=== PATIENT | male | born 1990 | race African-American/Black ===

== ENCOUNTER 2016-06-27 12:24 | Emergency (ER) ==
[2016-06-27 12:35] VITALS: BP 131/69
--- NOTE | 2016-06-27 13:21 | Diag Imaging Result Document ---
PROCEDURE NAME: CHEST-2 VIEWS - 06/27/2016 FRONTAL AND LATERAL CHEST, 2 VIEWS: FINDINGS: Compared to 06/10/2016. The lungs are well expanded. No pneumothoraces. The heart is not enlarged. The vessels are not distended. No pleural effusions. No pneumonia. No free air beneath the diaphragm. IMPRESSION: No acute abnormality.
[2016-06-27] MEDS ORDERED: PROTONIX PO ONE (13:57)
[2016-06-27] MEDS ORDERED: TORADOL IM ONE (13:58)
[2016-06-27] MEDS ORDERED: G.I. COCKTAIL PO ONE (13:58)
--- NOTE | 2016-06-27 14:02 | PROVIDER DOCUMENTATION ---
HPI-Abdominal Pain/GI Problem - General Chief Complaint: Abdominal Pain Stated Complaint: ABD PAIN Time Seen by Provider: 06/27/16 13:28 Source: patient Allergies/Adverse Reactions: Patient Allergies Allergy/AdvReac Type Severity Reaction Status Date / Time latex Allergy RASH Verified 06/27/16 12:35 hydrocodone AdvReac NAUSEA Verified 06/27/16 12:35 tramadol HCl * [From Ultram] AdvReac NAUSEA Verified 06/27/16 12:35 Home Medications: Home Medication List Medication Instructions Recorded Confirmed Last Taken Type Albuterol [Albuterol Neb] 2.5 mg INH Q4H PRN PRN 06/10/16 06/10/16 06/10/16 History - History of Present Illness-ABD Nature of Presenting Problems: Pt is 26 y/o M presents to the ED with generalized abdominal pain. Pt states pain has been present for two months. Pt states he can not eat due to the pain with eating. Pt states having body aches. Pt states the pain is constant. Pt denies N/V/D. Pt states also having pain in his R testicle. Abdominal Pain Onset Location: reports: generalized abdomen Pain Radiation: reports: no radiation Quality of Pain: reports: aching, indigestion Severity in ED: reports: mild Onset/Duration: reports: other (2 months) Timing: reports: still present, constant Activities at Onset: reports: light activity Exposure to sick contacts?: No Modifying Factors: improves with: nothing Associated Symptoms: reports: loss of appetite. denies: anxiety, arm pain, back /neck pain, chest pain, constipation, cough, diaphoresis, diarrhea, dizziness, EENT symptoms, fatigue, fever/chills, genitourinary problems, headaches, heartburn, joint pain, malaise, muscle aches, sinus congestion/drainage, nausea , rash, seizure, shortness of breath, sensory/motor loss, pain with inspiration , swelling/mass in abdomen, syncope, vomiting, weakness, trouble walking Last BM: unsure Dark Stools Present?: reports: none noticed Rectal Bleeding: reports: none Rectal Pain: reports: none Emesis Description: reports: none Bruising or Bleeding Gums?: No Similar Symptoms Previously?: Yes Recently seen or treated by another doctor?: No Review of Systems - Adult - REVIEW OF SYSTEMS - ADULT Constitutional: denies: chills, fever Eyes: denies: blurred vision, double vision Ears, Nose, Mouth & Throat: denies: ear pain, nose pain, throat pain Cardiovascular: denies: chest pain, heart murmur, irregular heart rate Respiratory: denies: cough, shortness of breath, wheezing Gastrointestinal: reports: abdominal pain, poor appetite. denies: diarrhea, nausea, vomiting Genitourinary: denies: dysuria, hematuria Musculoskeletal: denies: bone pain, joint pain, neck pain Integumentary: denies: hives, itching Neurological: denies: dizziness/vertigo, headache/migraines Psychiatric: reports: no symptoms reported Endocrine: reports: no symptoms reported Hematologic/Lymphatic: reports: no symptoms reported Allergic/Immunologic: reports: no symptoms reported All Other Systems: Reviewed and Negative Past History - Adult - PAST MEDICAL HISTORY-ADULT Review of Records: reports: Nursing Assessment Review, Medications Reviewed, Social history reviewed & non-contributory. Major Childhood Illnesses: reports: denies history Cardiovascular: reports: denies history Respiratory: reports: asthma, bronchitis, pneumonia Gastrointestinal: reports: GERD Obstetrical/Gynecological: reports: denies history Genitourinary: reports: denies history Musculoskeletal: reports: neck/back injury Neurological: reports: denies history Psychiatric: reports: anxiety Endocrine/Immune: reports: denies history Other Conditions: reports: MRSA (right thumb) - PRIOR SURGERIES/PROCEDURES Surgical/Procedure History: reports: other (figer Sx to remove staph infection) - IMMUNIZATION STATUS Childhood Immunizations: See Nurse Assessment Flu Vaccine: See Nurse Assessment - FAMILY HISTORY Family History: reviewed, not pertinent - SOCIAL HISTORY Smoking: cigarettes, less than 1 pack/day Provider spent 3-5 mins advising pt. on dangers of tobacco.: Discussed manners to quit use, and f/u contacts for add'l counseling. Substance Use: denies Living Situation: family Physical Exam-General - PHYSICAL EXAM-ADULT Initial Vital Signs Reviewed: Yes - CONSTITUTIONAL General Appearance: appears well, alert, no apparent distress - EYES Eyes: PERRL/EOMI, pink conjunctivae, fundi clear, no AV nicking - HEAD, EARS, NOSE, MOUTH & THROAT HENMT: normocephalic/atraumatic, moist mucous membranes, normal ENT inspection, TMs normal, pharynx normal - NECK Neck: non-tender, full range of motion, supple, normal inspection - RESPIRATORY Respiratory: chest non-tender, lungs clear, normal breath sounds, no pleuratic chest pain, no respiratory distress, no accessory muscle use - CARDIOVASCULAR Cardiovascular: normal peripheral pulses, regular rate, rhythm, no edema, no gallop, no JVD, no murmur - GASTROINTESTINAL (ABDOMEN) Abdominal Exam: normal bowel sounds, soft, no organomegaly, no pulsatile mass, tenderness (generalized) - GENITOURINARY Male Genitalia: circumcised, hernia mass (R inguinal hernia), testicular tenderness (R) - LYMPHATIC Lymphatic: no adenopathy - MUSCULOSKELETAL Back Exam: normal inspection, no CVA tenderness, no vertebral tenderness Extremity: normal range of motion, non-tender, normal gait, normal inspection, no pedal edema, no calf tenderness, normal capillary refill, pelvis stable - SKIN Integumentary: normal color, normal turgor, warm/dry - NEUROLOGIC Neurologic: assistant corporate secretary II-XII nml as tested, grossly normal, no motor/sensory deficits - PSYCHIATRIC Psych/Mental Status: normal mood/affect, normal thought content, normal thought process, oriented x 3 Progress - PLAN OF CARE/RESULTS Progress/Plan/Lab Results: Orders Category Date Time Status CHEST-2 VIEWS [RAD] Stat Exams 06/27/16 12:36 Completed KUB ABDOMEN [RAD] Stat Exams 06/27/16 13:56 Ordered CBC WITH ELECTRONIC DIFF [HEME] Stat Lab 06/27/16 13:54 Ordered CMP [COMPREHENSIVE METABOLIC PANEL] [CHEM] Stat Lab 06/27/16 13:[address] W/POSS RFLX CULT [URINALYSIS] Stat Lab 06/27/16 14:01 Ordered Ketorolac [Toradol] Med 06/27/16 13:58 Discontinued 60 mg IM NOW ONE Lido/Diaz Alk/Al&mg Hydrox [G.i. Cocktail] Med 06/27/16 13:58 Discontinued 30 ml PO NOW ONE Pantoprazole [Protonix] Med 06/27/16 13:57 Discontinued 40 mg PO NOW ONE Vital Signs - 24 hr 06/27/16 12:29 Temperature 98.5 F Pulse Rate 87 Respiratory 18 Rate Blood Pressure 131/69 O2 Sat by Pulse 98 Oximetry Laboratory Tests 06/27/16 06/27/16 13:15 14:13 WBC 3.41 L RBC 5.19 Hgb 14.6 Hct 43.5 MCV 83.8 MCH 28.1 MCHC 33.6 RDW Std Deviation 12.4 Plt Count 228 MPV 9.7 Immature Gran % (Auto) 0.3 Neut % (Auto) 43.6 Lymph % (Auto) 38.7 [place] % (Auto) 15.0 H Eos % (Auto) 2.1 Baso % (Auto) 0.3 Immature Gran # (Auto) 0.01 Neut # (Auto) 1.49 Lymph # (Auto) 1.32 [place] # (Auto) 0.51 Eos # (Auto) 0.07 Baso # (Auto) 0.01 Urine Source CLEAN CATCH Urine Color YELLOW Urine Clarity CLEAR Urine pH 5.0 Ur Specific [place] 1.020 Urine Protein TRACE A Urine Ketones TRACE Urine Blood 1+ A Urine Nitrite NEGATIVE Urine Bilirubin NEGATIVE Urine Urobilinogen NORMAL Urine WBC TRACE A Urine Glucose NEGATIVE - REASSESSMENT Reassessment #1 Time Reassessed: 15:43 (Dr. Borden at bedside ) Status: improving Reassessment Comment: Pt states last shot he recieved helped - XRAY 1 XRAY: Bilateral XRAY Study: Abdomen Impression: Normal XRAY Interpretation: negative 2 XRAY: Bilateral XRAY Study: Chest Impression: Normal XRAY Interpretation: no acute abnormality. Departure - Departure Time of Disposition Order: 15:44 DIAGNOSIS: IBS (irritable bowel syndrome) Qualifiers: Irritable bowel syndrome type: unspecified Qualified Code(s): K58.9 - Irritable bowel syndrome without diarrhea Asthma Qualifiers: Asthma severity: unspecified severity Asthma complication type: uncomplicated Qualified Code(s): J45.909 - Unspecified asthma, uncomplicated Disposition: HOME 01 Certified Medical Emergency: Emergent Condition: Stable Additional Instructions: ED Follow Up Instructions: You have been treated by a care provider in the Emergency Department. These instructions are being provided to you so you can have an understanding of how to care for yourself upon discharge. Upon discharge from the Emergency Department, you are responsible for making arrangements for follow-up care by a physician of your choice. Take all prescribed medications as directed. Return to the Emergency Department immediately for any new or worsening symptoms. You may call the Physician Referral phone number at [phone] to obtain a list of Physicians who are taking new patients. Referrals: None,PCP [Primary Care Provider] - Jacqui Mendes MD [STAFF PHYSICIAN] - Call for Appoint. 1-2days Attestation - Scribe Verification/Attestation Scribe:: Brianna More Acting as Scribe for:: Terra Borden Scribe documention review:: This chart was documented by a scribe and accurately reflects the service the provider performed and the decisions made by the provider.
[2016-06-27 14:08] LABS: URINE CULTURE PL NEEDED? NO; URINE SOURCE CLEAN CATCH
[2016-06-27 14:12] LABS: BILIRUBIN URINE NEGATIVE (NEGATIVE); BLOOD URINE 1+ (NEGATIVE); CLARITY CLEAR (CLEAR); COLOR YELLOW; GLUCOSE URINE NEGATIVE (NEGATIVE); LEUKOCYTES URINE TRACE (NEGATIVE); NITRITE URINE NEGATIVE (NEGATIVE); PROTEIN URINE TRACE mg/dL (NEGATIVE); UROBILINOGEN URINE NORMAL
[2016-06-27 14:18] LABS: MANUAL DIFF NEEDED? NO
[2016-06-27 14:19] LABS: BASO% 0.3 % (0.0-0.8); EOS# 0.07 X1000 (0.0-0.7); EOS% 2.1 % (0.0-10.0); HEMATOCRIT 43.5 % (42.0-52.0); HEMOGLOBIN 14.6 g/dL (14.0-18.0); IMM GRAN# 0.01 X1000 (0.0-0.04); IMM GRAN% 0.3 % (0.0-0.5); LYMPH# 1.32 X1000 (1.2-3.4); LYMPH% 38.7 % (20.5-51.1); MCH 28.1 PG (27-31); MCHC 33.6 g/dL (33-37); MCV 83.8 FL (81-99); MONO# 0.51 X1000 (0.11-0.59); MPV 9.7 FL (7.4-10.4); NEUT% 43.6 % (42.2-75.2); PLT 228 X1000 (130-400); RBC 5.19 XMIL (4.7-6.1)
[2016-06-27 14:36] LABS: URINE EPITHELIAL CELLS <10 /HPF (<10); URINE RBC <10 /HPF (<10); URINE WBC <10 /HPF (<10)
[2016-06-27] MEDS ORDERED: DILAUDID IM ONE (14:57)
[2016-06-27] MEDS ORDERED: PHENERGAN IM ONE (14:58)
[2016-06-27 15:04] LABS: AGAP 11; ALBUMIN 4.6 g/dL (3.5-5.0); ALKALINE PHOSPHATASE 88 U/L (32-122); BUN 13 mg/dL (8-22); CALCIUM 9.8 mg/dL (8.8-10.2); CHLORIDE 98 mmol/L (98-107); COSMO 271; GOT 23 U/L (10-34); GPT 9 U/L (10-44); POTASSIUM 3.8 mmol/L (3.5-5.1); SODIUM 136 mmol/L (136-145); TCO2 27 mmol/L (25-35); TOTAL PROTEIN 8.1 g/dL (6.3-8.3)
--- NOTE | 2016-06-27 15:14 | Diag Imaging Result Document ---
PROCEDURE NAME: KUB ABDOMEN - 06/27/2016 ABDOMEN SINGLE-VIEW: FINDINGS: No free air beneath the diaphragm. No organomegaly. No foreign body. No abnormal abdominal calcifications. No bowel obstruction. IMPRESSION: Negative exam.
== END 2016-06-27 15:53 | disposition home or self-care (01) ==
LOC: P.ED 12:24
DX: K58.9 Irritable bowel syndrome, unspecified (principal); J45.909 Unspecified asthma, uncomplicated; R10.84 Generalized abdominal pain; N50.811 Right testicular pain; K30 Functional dyspepsia; R52 Pain, unspecified; R10.817 Generalized abdominal tenderness; F17.210 Nicotine dependence, cigarettes, uncomplicated; Z71.6 Tobacco abuse counseling; Z86.14 Personal history of Methicillin resistant Staphylococcus aureus infection
CPT/HCPCS: 71020; 74000; 80053; 81001; 85025; J1170; J1885; J2550

== ENCOUNTER 2016-07-12 14:37 | Emergency (ER) ==
[2016-07-12 14:55] VITALS: BP 122/89
[2016-07-12] MEDS ORDERED: NS 1,000 ML IV ONE (16:02)
[2016-07-12] MEDS ORDERED: SODIUM CHLORIDE 0.9% INJ ONE (16:02)
[2016-07-12] MEDS ORDERED: PROTONIX IV ONE (16:02)
[2016-07-12] MEDS ORDERED: LEVSIN-SL SL ONE (16:02)
--- NOTE | 2016-07-12 16:10 | PROVIDER DOCUMENTATION ---
HPI-General Adult - General Chief Complaint: General Adult Stated Complaint: ABD PAIN Time Seen by Provider: 07/12/16 15:42 Source: patient Allergies/Adverse Reactions: Patient Allergies Allergy/AdvReac Type Severity Reaction Status Date / Time latex Allergy RASH Verified 06/27/16 12:35 hydrocodone AdvReac NAUSEA Verified 06/27/16 12:35 tramadol HCl * [From Ultram] AdvReac NAUSEA Verified 06/27/16 12:35 Home Medications: Home Medication List Medication Instructions Recorded Confirmed Last Taken Type Albuterol [Albuterol Neb] 2.5 mg INH Q4H PRN PRN 06/10/16 06/10/16 06/10/16 History Dicyclomine [Bentyl] 20 mg PO TID AC #30 capsule 06/27/16 Unknown Rx Omeprazole [Prilosec] 40 mg PO DAILY #20 capsule. 06/27/16 Unknown Rx Docusate Sodium [Colace] 100 mg PO DAILY #10 capsule 07/12/16 Unknown Rx Magnesium Citrate [Citrate of 300 ml PO ONCE #1 bottle 07/12/16 Unknown Rx Magnesia] - History of Present Illness -Gen Adult Nature of Presenting Problems: Pt. is 26 yom that presents with c/o LLQ abd pain and low back pain. Pt. reports he has IBS and doesn't have insurance so he has been unable to see the GI doctor. Pt. states he hasn't eaten much and reports his last BM was yesterday and that it was mild diarrhea. Location of Pain/Injury: reports: abdomen, back. denies: head, face, mouth, neck, chest, upper extremity, hand(s), pelvis, genitalia, lower extremity, feet , upper body, lower body, generalized Pain Radiation: reports: no radiation Quality of Pain: reports: aching, cramping. denies: burning, dull, fullness, indigestion, pressure, sharp, stabbing, tearing, throbbing, tightness Severity: reports: moderate. denies: mild, severe Onset/Duration: reports: abrupt, this morning Timing: reports: still present. denies: improving, gone now, resolved prior to arrival, intermittent, constant, changing over time, getting worse Context/Activities at Onset: reports: none. denies: recent emotional stress, recent physical stress, recent trauma history, possible bad food, cold exposure , out of country travel Modifying Factors: improves with: nothing Associated Symptoms: reports: diarrhea, nausea. denies: anxiety, arm pain, back /neck pain, chest pain, constipation, cough, diaphoresis, dizziness, EENT symptoms, fatigue, fever/chills, genitourinary problems, headaches, heartburn, joint pain, loss of appetite, malaise, muscle aches, sinus congestion/drainage, rash, seizure, shortness of breath, sensory/motor loss, pain with inspiration, swelling/mass in abdomen, syncope, vomiting, weakness, trouble walking Similar Symptoms Previously?: Yes Recently seen or treated by another doctor?: No Review of Systems - Adult - REVIEW OF SYSTEMS - ADULT Constitutional: reports: see HPI. denies: chills, fever, fatique Eyes: reports: see HPI. denies: discharge, blurred vision, double vision Ears, Nose, Mouth & Throat: reports: see HPI. denies: ear discharge, ear pain, hearing loss, sinus problem, nose pain, loose teeth, mouth/dental pain, throat pain, throat swelling Cardiovascular: reports: see HPI. denies: chest pain, orthopnea, palpitations, syncope Respiratory: reports: see HPI. denies: chronic cough, cough, dyspnea on exertion, pleurisy, shortness of breath, wheezing Gastrointestinal: reports: see HPI, abdominal pain, diarrhea, difficulty swallowing, frequent heartburn, nausea, poor appetite. denies: hematemesis, rectal bleeding, vomiting Genitourinary: reports: see HPI. denies: discharge, flank pain, hematuria, incontinence, urinary retention Musculoskeletal: reports: see HPI, back pain. denies: bone pain, joint pain, joint swelling, neck pain Integumentary: reports: see HPI. denies: hives, itching, rash, skin thickening Neurological: reports: see HPI. denies: ataxia, headache/migraines, numbness, paresthesia, seizure, tremors Psychiatric: reports: see HPI. denies: anxiety, depression, emotional problems , insomnia, panic attacks, suicidal thoughts Past History - Adult - PAST MEDICAL HISTORY-ADULT Review of Records: reports: Old Records Reviewed, Nursing Assessment Review, Medications Reviewed, Social history reviewed & non-contributory. Major Childhood Illnesses: reports: denies history Cardiovascular: reports: denies history Respiratory: reports: asthma, bronchitis, pneumonia Gastrointestinal: reports: GERD Obstetrical/Gynecological: reports: denies history Genitourinary: reports: denies history Musculoskeletal: reports: neck/back injury Neurological: reports: denies history Psychiatric: reports: anxiety Endocrine/Immune: reports: denies history Other Conditions: reports: MRSA (right thumb) - PRIOR SURGERIES/PROCEDURES Surgical/Procedure History: reports: other (figer Sx to remove staph infection) - IMMUNIZATION STATUS Childhood Immunizations: See Nurse Assessment Flu Vaccine: See Nurse Assessment - FAMILY HISTORY Family History: reviewed, not pertinent - SOCIAL HISTORY Smoking: quit less than 1 year, cigarettes Physical Exam-General - PHYSICAL EXAM-ADULT Initial Vital Signs Reviewed: Yes - CONSTITUTIONAL General Appearance: alert, moderate distress, thin. negative: obese, anxious, lethargic, slow to respond, obtunded, combative - EYES Eyes: PERRL/EOMI, pink conjunctivae. negative: conjuctival exudate, scleral icterus, subconjunctival hemorrhage - HEAD, EARS, NOSE, MOUTH & THROAT HENMT: normocephalic/atraumatic, moist mucous membranes. negative: angioedema, frontal tenderness, maxillary tenderness - NECK Neck: non-tender, full range of motion, supple, normal inspection. negative: lymphadenopathy, trachial deviation, thyromegaly - RESPIRATORY Respiratory: lungs clear, normal breath sounds. negative: crackles, rales, rhonchi, stridor, wheezing - CARDIOVASCULAR Cardiovascular: normal peripheral pulses, regular rate, rhythm, no edema, no JVD , no murmur. negative: extra beats, friction rub, irregularly irregular - CHEST (BREASTS) Chest/Breast: deferred - GASTROINTESTINAL (ABDOMEN) Abdominal Exam: abnormal bowel sounds (hyperactive), guarding, tenderness. negative: hernia, mass - GENITOURINARY Male Genitalia: deferred Rectal Exam: deferred Hemoccult Exam: deferred - LYMPHATIC Lymphatic: no adenopathy. negative: axilla node tender, cervical node tenderness - MUSCULOSKELETAL Back Exam: normal inspection, no CVA tenderness, no vertebral tenderness. negative: ecchymosis, scoliosis, swelling Extremity: normal range of motion, non-tender, normal gait, normal inspection. negative: deformity, erythema, inflammation, swelling, tenderness Peripheral Pulses: radial (R): 2+, radial (L): 2+ - SKIN Integumentary: normal color, normal turgor, warm/dry. negative: cyanosis, diaphoresis, ecchymosis, erythema, jaundice, mottled, pallor, petechiae, purpura , rash, swelling, tenderness - NEUROLOGIC Neurologic: grossly normal, no motor/sensory deficits. negative: aphasia, facial droop, focal weakness, motor weakness, sensory deficit - PSYCHIATRIC Psych/Mental Status: normal mood/affect, normal thought content, normal thought process, oriented x 3. negative: anxious, paranoid, tearful Progress - PLAN OF CARE/RESULTS Progress/Plan/Lab Results: Discussed results and plan of care with patient. Patient agrees with plan and verbalizes understanding. Vital Signs Temp Pulse Resp BP Pulse Ox 07/12/16 14:50 98 F 104 H 18 122/89 99 latex Allergy (Verified 06/27/16 12:35) RASH hydrocodone Adverse Reaction (Verified 06/27/16 12:35) NAUSEA tramadol HCl * [From Ultram] Adverse Reaction (Verified 06/27/16 12:35) NAUSEA Albuterol [Albuterol Neb] 2.5 mg INH Q4H PRN PRN 06/10/16 Dicyclomine [Bentyl] 20 mg PO TID AC #30 capsule 06/27/16 Omeprazole [Prilosec] 40 mg PO DAILY #20 capsule. 06/27/16 Laboratory 07/12/16 07/12/16 07/12/16 17:00 17:00 16:15 WBC RBC Hgb Hct MCV MCH MCHC RDW Std Deviation Plt Count MPV Immature Gran % (Auto) Neut % (Auto) Lymph % (Auto) Cross % (Auto) Eos % (Auto) Baso % (Auto) Immature Gran # (Auto) Neut # (Auto) Lymph # (Auto) Cross # (Auto) Eos # (Auto) Baso # (Auto) Sodium 137 Potassium 4.3 Chloride 97 L Carbon Dioxide 25 Anion Gap 15 BUN 9 Creatinine 1.2 Estimated GFR/1.73 m2 > 60 BUN/Creatinine Ratio 8 Glucose 77 Calculated Osmolality 271 Calcium 9.6 Total Bilirubin 0.50 AST 19 ALT 8 L Alkaline Phosphatase 86 Total Protein 8.1 Albumin 4.8 Globulin 3.0 Albumin/Globulin Ratio 1.0 Amylase Lipase 12 L Urine Source CLEAN CATCH Urine Color YELLOW Urine Clarity CLEAR Urine pH 6.0 Ur Specific [place] 1.020 Urine Protein TRACE A Urine Ketones 3+(Large) A Urine Blood TRACE Urine Nitrite NEGATIVE Urine Bilirubin NEGATIVE Urine Urobilinogen 4+(12 mg/dL) Urine Microscopic RBC <10 Urine WBC TRACE A Urine Microscopic WBC <10 Ur Epithelial Cells <10 Urine Glucose NEGATIVE Urine Opiates Screen PRESUMPTIVE POSITIVE A Ur Oxycodone Screen NONE DETECTED Urine Methadone Screen NONE DETECTED Ur Barbituates Screen NONE DETECTED Ur Tricyclics Screen NONE DETECTED Ur Phencyclidine Scrn NONE DETECTED Ur Amphetamines Screen PRESUMPTIVE POSITIVE A U Methamphetamines Scrn PRESUMPTIVE POSITIVE A Urine MDMA Screen NONE DETECTED U Benzodiazepines Scrn PRESUMPTIVE POSITIVE A Urine Cocaine Screen NONE DETECTED U Cannabinoids Screen NONE DETECTED 07/12/16 07/12/16 16:15 16:15 WBC 10.59 RBC 5.37 Hgb 15.1 Hct 45.1 MCV 84.0 MCH 28.1 MCHC 33.5 RDW Std Deviation 13.2 Plt Count 202 MPV 10.6 H Immature Gran % (Auto) 0.2 Neut % (Auto) 82.7 H Lymph % (Auto) 9.4 L Cross % (Auto) 7.3 Eos % (Auto) 0.3 Baso % (Auto) 0.1 Immature Gran # (Auto) 0.02 Neut # (Auto) 8.76 H Lymph # (Auto) 1.00 L Cross # (Auto) 0.77 H Eos # (Auto) 0.03 Baso # (Auto) 0.01 Sodium Potassium Chloride Carbon Dioxide Anion Gap BUN Creatinine Estimated GFR/1.73 m2 BUN/Creatinine Ratio Glucose Calculated Osmolality Calcium Total Bilirubin AST ALT Alkaline Phosphatase Total Protein Albumin Globulin Albumin/Globulin Ratio Amylase 44 Lipase Urine Source Urine Color Urine Clarity Urine pH Ur Specific [place] Urine Protein Urine Ketones Urine Blood Urine Nitrite Urine Bilirubin Urine Urobilinogen Urine Microscopic RBC Urine WBC Urine Microscopic WBC Ur Epithelial Cells Urine Glucose Urine Opiates Screen Ur Oxycodone Screen Urine Methadone Screen Ur Barbituates Screen Ur Tricyclics Screen Ur Phencyclidine Scrn Ur Amphetamines Screen U Methamphetamines Scrn Urine MDMA Screen U Benzodiazepines Scrn Urine Cocaine Screen U Cannabinoids Screen Orders Category Date Time Status Saline Loc NOW Care 07/12/16 16:00 Active FLAT/UPRIGHT ABD/1 VIEW CHEST [RAD] Stat Exams 07/12/16 16:08 Draft AMYLASE [CHEM] Stat Lab 07/12/16 16:15 Completed CBC WITH ELECTRONIC DIFF [HEME] Stat Lab 07/12/16 16:15 Completed COMPREHENSIVE METABOLIC PANEL [CHEM] Stat Lab 07/12/16 16:15 Completed LIPASE [CHEM] Stat Lab 07/12/16 16:[address] [URINALYSIS] Stat Lab 07/12/16 17:00 Com[address] URINE DRUG SCREEN PL Timed Lab 07/12/16 17:00 Completed URINE MICROSCOPIC [URINALYSIS] Stat Lab 07/12/16 17:00 Completed 0.9% Sodium Chloride Inj [Ns] 1,000 ml Med 07/12/16 16:02 Discontinued IV 999 mls/hr Hyoscyamine Subl [Levsin-Sl] Med 07/12/16 16:02 Discontinued 0.125 mg SL NOW ONE Pantoprazole [Protonix] Med 07/12/16 16:02 Discontinued 40 mg IV NOW ONE Sodium Chloride 0.9% Med 07/12/16 16:02 Discontinued 10 ml INJ NOW ONE Laboratory Tests 07/12/16 07/12/16 07/12/16 16:15 16:15 16:15 WBC 10.59 RBC 5.37 Hgb 15.1 Hct 45.1 MCV 84.0 MCH 28.1 MCHC 33.5 RDW Std Deviation 13.2 Plt Count 202 MPV 10.6 H Immature Gran % (Auto) 0.2 Neut % (Auto) 82.7 H Lymph % (Auto) 9.4 L Cross % (Auto) 7.3 Eos % (Auto) 0.3 Baso % (Auto) 0.1 Immature Gran # (Auto) 0.02 Neut # (Auto) 8.76 H Lymph # (Auto) 1.00 L Cross # (Auto) 0.77 H Eos # (Auto) 0.03 Baso # (Auto) 0.01 Sodium 137 Potassium 4.3 Chloride 97 L Carbon Dioxide 25 Anion Gap 15 BUN 9 Creatinine 1.2 Estimated GFR/1.73 m2 > 60 BUN/Creatinine Ratio 8 Glucose 77 Calculated Osmolality 271 Calcium 9.6 Total Bilirubin 0.50 AST 19 ALT 8 L Alkaline Phosphatase 86 Total Protein 8.1 Albumin 4.8 Globulin 3.0 Albumin/Globulin Ratio 1.0 Amylase 44 Lipase 12 L Urine Source Urine Color Urine Clarity Urine pH Ur Specific [place] Urine Protein Urine Ketones Urine Blood Urine Nitrite Urine Bilirubin Urine Urobilinogen Urine Microscopic RBC Urine WBC Urine Microscopic WBC Ur Epithelial Cells Urine Glucose Urine Opiates Screen Ur Oxycodone Screen Urine Methadone Screen Ur Barbituates Screen Ur Tricyclics Screen Ur Phencyclidine Scrn Ur Amphetamines Screen U Methamphetamines Scrn Urine MDMA Screen U Benzodiazepines Scrn Urine Cocaine Screen U Cannabinoids Screen 07/12/16 07/12/16 17:00 17:00 WBC RBC Hgb Hct MCV MCH MCHC RDW Std Deviation Plt Count MPV Immature Gran % (Auto) Neut % (Auto) Lymph % (Auto) Cross % (Auto) Eos % (Auto) Baso % (Auto) Immature Gran # (Auto) Neut # (Auto) Lymph # (Auto) Cross # (Auto) Eos # (Auto) Baso # (Auto) Sodium Potassium Chloride Carbon Dioxide Anion Gap BUN Creatinine Estimated GFR/1.73 m2 BUN/Creatinine Ratio Glucose Calculated Osmolality Calcium Total Bilirubin AST ALT Alkaline Phosphatase Total Protein Albumin Globulin Albumin/Globulin Ratio Amylase Lipase Urine Source CLEAN CATCH Urine Color YELLOW Urine Clarity CLEAR Urine pH 6.0 Ur Specific [place] 1.020 Urine Protein TRACE A Urine Ketones 3+(Large) A Urine Blood TRACE Urine Nitrite NEGATIVE Urine Bilirubin NEGATIVE Urine Urobilinogen 4+(12 mg/dL) Urine Microscopic RBC <10 Urine WBC TRACE A Urine Microscopic WBC <10 Ur Epithelial Cells <10 Urine Glucose NEGATIVE Urine Opiates Screen PRESUMPTIVE POSITIVE A Ur Oxycodone Screen NONE DETECTED Urine Methadone Screen NONE DETECTED Ur Barbituates Screen NONE DETECTED Ur Tricyclics Screen NONE DETECTED Ur Phencyclidine Scrn NONE DETECTED Ur Amphetamines Screen PRESUMPTIVE POSITIVE A U Methamphetamines Scrn PRESUMPTIVE POSITIVE A Urine MDMA Screen NONE DETECTED U Benzodiazepines Scrn PRESUMPTIVE POSITIVE A Urine Cocaine Screen NONE DETECTED U Cannabinoids Screen NONE DETECTED - XRAY 1 XRAY Study: Chest, Abdomen XRAY Interpretation: Mild constipation ([place]) Departure - Departure Time of Disposition Order: 17:46 DIAGNOSIS: Constipation Qualifiers: Constipation type: other constipation type Qualified Code(s): K59.09 - Other constipation Abdominal pain Qualifiers: Abdominal location: generalized Qualified Code(s): R10.84 - Generalized abdominal pain Disposition: HOME 01 Certified Medical Emergency: Emergent Condition: Stable Additional Instructions: Follow up with primary care physician Take medications as directed Return to ED for any concerns or worsening of symptoms ED Follow Up Instructions: You have been treated by a care provider in the Emergency Department. These instructions are being provided to you so you can have an understanding of how to care for yourself upon discharge. Upon discharge from the Emergency Department, you are responsible for making arrangements for follow-up care by a physician of your choice. Take all prescribed medications as directed. Return to the Emergency Department immediately for any new or worsening symptoms. You may call the Physician Referral phone number at [phone] to obtain a list of Physicians who are taking new patients. Prescriptions: Magnesium Citrate [Citrate of Magnesia] 300 ml PO ONCE #1 bottle Docusate Sodium [Colace] 100 mg PO DAILY #10 capsule Attestation - Physician/ NICOLE Attestation Patient care was provided by Advanced Practice Provider:: Yes Advanced Practice Provider:: Duke Whitaker Advanced Practice Provider documentation review:: The Mid-level provider documentation, treatment plan and medical decision making was reviewed by the physician who agrees with all treatment and medical decision making by the MLP.
[2016-07-12 16:19] LABS: MANUAL DIFF NEEDED? NO
[2016-07-12 16:22] LABS: BASO% 0.1 % (0.0-0.8); EOS# 0.03 X1000 (0.0-0.7); EOS% 0.3 % (0.0-10.0); HEMATOCRIT 45.1 % (42.0-52.0); HEMOGLOBIN 15.1 g/dL (14.0-18.0); IMM GRAN# 0.02 X1000 (0.0-0.04); IMM GRAN% 0.2 % (0.0-0.5); LYMPH% 9.4 % (20.5-51.1); MCH 28.1 PG (27-31); MCHC 33.5 g/dL (33-37); MONO# 0.77 X1000 (0.11-0.59); MONO% 7.3 % (1.7-9.3); MPV 10.6 FL (7.4-10.4); NEUT% 82.7 % (42.2-75.2); PLT 202 X1000 (130-400); RBC 5.37 XMIL (4.7-6.1)
[2016-07-12 16:47] LABS: AGAP 15; ALBUMIN 4.8 g/dL (3.5-5.0); ALKALINE PHOSPHATASE 86 U/L (32-122); BUN 9 mg/dL (8-22); CALCIUM 9.6 mg/dL (8.8-10.2); CHLORIDE 97 mmol/L (98-107); COSMO 271; GOT 19 U/L (10-34); GPT 8 U/L (10-44); LIPASE 12 U/L (13-60); POTASSIUM 4.3 mmol/L (3.5-5.1); SODIUM 137 mmol/L (136-145); TCO2 25 mmol/L (25-35); TOTAL PROTEIN 8.1 g/dL (6.3-8.3)
[2016-07-12 17:14] LABS: URINE SOURCE CLEAN CATCH
[2016-07-12 17:22] LABS: BILIRUBIN URINE NEGATIVE (NEGATIVE); BLOOD URINE TRACE (NEGATIVE); CLARITY CLEAR (CLEAR); COLOR YELLOW; GLUCOSE URINE NEGATIVE (NEGATIVE); LEUKOCYTES URINE TRACE (NEGATIVE); NITRITE URINE NEGATIVE (NEGATIVE); PROTEIN URINE TRACE mg/dL (NEGATIVE); URINE MICROSCOPIC NEEDED? YES; UROBILINOGEN URINE 4+(12 mg/dL)
--- NOTE | 2016-07-12 17:32 | Diag Imaging Result Document ---
PROCEDURE NAME: FLAT/UPRIGHT ABD/1 VIEW CHEST - 07/12/2016 FLAT AND UPRIGHT AND CHEST, THREE VIEWS: FINDINGS: The lungs are well expanded. The heart is not enlarged. No pneumonia. No free air beneath the diaphragm. No organomegaly. The bowel loops are not dilated. No foreign body. No abnormal abdominal calcifications. IMPRESSION: Mild constipation.
[2016-07-12 17:36] LABS: UR AMPHETAMINES QUAL PRESUMPTIVE POSITIVE (NONE DETECT); UR BARBITUATES QUAL NONE DETECTED (NONE DETECT); UR BENZODIAZEPIN QUAL PRESUMPTIVE POSITIVE (NONE DETECT); UR CANNABINOIDS QUAL NONE DETECTED (NONE DETECT); UR COCAINE QUAL NONE DETECTED (NONE DETECT); UR MDMA QUAL NONE DETECTED (NONE DETECT); UR METHADONE QUAL NONE DETECTED (NONE DETECT); UR METHAMPHETAMINE QUAL PRESUMPTIVE POSITIVE (NONE DETECT); UR OPIATES QUAL PRESUMPTIVE POSITIVE (NONE DETECT); UR OXYCODONE QUAL NONE DETECTED (NONE DETECT); UR PCP QUAL NONE DETECTED (NONE DETECT); UR TCA QUAL NONE DETECTED (NONE DETECT)
[2016-07-12 17:38] LABS: URINE EPITHELIAL CELLS <10 /HPF (<10); URINE RBC <10 /HPF (<10); URINE WBC <10 /HPF (<10)
[2016-07-12] MEDS ORDERED: RELISTOR SUBQ ONE (17:47)
== END 2016-07-12 18:00 | disposition home or self-care (01) ==
LOC: P.ED 14:37
DX: K59.09 Other constipation (principal); R10.84 Generalized abdominal pain; R10.32 Left lower quadrant pain; M54.5 Low back pain; R19.7 Diarrhea, unspecified; R11.0 Nausea; R13.10 Dysphagia, unspecified; R12 Heartburn; J45.909 Unspecified asthma, uncomplicated
CPT/HCPCS: 74022; 80053; 80305; 81001; 82150; 83690; 85025; 96361; 96374; C9113; J7030; S0164